=== PATIENT | female | born 1990 | race Hispanic/Latino ===

== ENCOUNTER 2019-02-17 14:11 | Emergency (ER) | payer OTHER, SELFPAY | END 2019-02-17 16:59 | disposition home or self-care (01) | LOC: ERS 14:11 | DX: O99.511 Diseases of the respiratory system complicating pregnancy, first trimester (principal); J10.1 Influenza due to other identified influenza virus with other respiratory manifestations; Z3A.01 Less than 8 weeks gestation of pregnancy | CPT/HCPCS: 87804; 99283 ==

== ENCOUNTER 2019-08-11 09:43 | Day surgery (SDC) | payer MEDICAID, OTHER ==
[2019-08-11 10:07] VITALS: BP 114/58; TEMP 98.5
[2019-08-11 10:09] VITALS: BMI 27.8
[2019-08-11] MEDS ORDERED: hydrALAZINE 20 MG/ML VIAL SLOW IVP PRN (10:21)
--- NOTE | 2019-08-11 10:24 | PDOC.FPROB ---
FMR OB H&P: HPI - History of Present Illness Chief Complaint: seeing spots in vision Indentification: 29 y/o @ 32.4 wks dated by LMP and 1T sono in [place]. History of Present Illness: Presents to L&D after a phone visit with Dr. Llanes at [facility], after stating she was having spots in her vision. Pt has a pmhx of Pre-E in previous first in 2011. Pt states the black spots are worsened by moving her head and they are always present. Denies streaks or flashes across her vision. Pt c/o occasional LEAL in that self resolves without any medications. Pt denies LOF. Reports many FM. Denies vaginal bleeding and states she has slight white vaginal d/c. denies vaginal irritation or itching. Pt has been receiving monthly care in [place]. Brought records to clinic form [place]. Pt states she received two doses of celestone about 1 month ago. She states this was due to possibly requiring a at that time. 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 Pt does not remember the name. - Surgical History Sx History: Cholecystectomy in 2012 polyp removal from [facility] 2016 - Social History Social History: Denies etoh, tobacco or drugs. Late transfer of care from [place] Feels safe at home. - Family History Family History: sister with scoliosis FMR OB H&P: Medications - Current Home Medications: Medication Instructions Recorded Confirmed Type 21/Iron Fu/Folic Acid 1 tablet PO DAILY 11/02/13 08/11/19 History [ Complete Caplet] Allergies/Adverse Reactions: Allergies Allergy/AdvReac Type Severity Reaction Status Date / Time No Known Allergies Allergy Verified 11/03/13 09:17 FMR OB H&P: ROS - Review of Systems General: denies: fever/chills Eyes: reports: vision changes, floaters. denies: eye pain, double vision, scotomas ENT: denies: nasal congestion, sore throat Cardiovascular: reports: palpitation (in the mornings). denies: chest pain, edema Respiratory: denies: cough, congestion, shortness of breath Gastrointestinal: denies: abdominal pain, nausea, vomiting, diarrhea Genitourinary (Female): reports: vaginal discharge. denies: dysuria, vaginal pain, vaginal bleeding, contractions, vaginal pressure Musculoskeletal: denies: pain, swelling Neurologic: denies: numbness, seizures Integumentary: denies: itching, rash Endocrine: denies: polydipsia, polyuria Hematologic/Lymphatic: denies: prolonged or excessive bleeding, enlarged lymph nodes FMR OB H&P: Vital Signs - Maternal Vital signs: Vital Signs - First Documented Temp Pulse Resp BP 98.5 F 66 18 114/58 L 08/11/19 09:50 08/11/19 09:50 08/11/19 09:50 08/11/19 09:50 - Heart Tones Baseline: 145 Variability: moderate Acceleration: present Deceleration: absent [place] contractions every: none on TOCO FMR OB H&P: Physical Exam - Physical Exam General: NAD, awake, alert and oriented HEENT: normocephalic and atraumatic, EOMI, MMM, grossly normal vision, grossly normal hearing Neck: supple, FROM, trachea midline, no JVD Chest: non-tender to palpation Breast: symmetric Heart: RRR, normal S1/S2, no murmurs/rubs/gallops, pulses present, no edema General: CTAB, no respiratory distress, good air movement, no rales/rhonchi, no wheezing, no retractions Abdomen: soft, gravid, non-tender, bowel sound present Musculoskeletal: normal gait and station, pulses present, FROM in all four extremities, no misalignment/asymmetry, no atrophy Neurological: sensation to pain,touch and proprioception grossly normal, DTR +2 , no clonus, no tremor, no focal deficit Skin: no rash, good tugor, capillary refill <2 seconds, no jaundice Lymphatic: no unusual bruising or bleeding, no purpura, no petechia Psychiatric: intact recent and remote memory, good judgement and insight, normal mood and affect FMR OB H&P: A/P - Problem List (1) Status: Acute Qualifiers: Weeks of gestation: 32 weeks Qualified Code(s): Z3A.32 - 32 weeks gestation of (2) History of pre-eclampsia in prior , currently Status: Resolved Code(s): O09.299 - SUPRVSN OF PREG W POOR REPRODCTV OR OBSTET HISTORY, UNSP TRI (3) Vision abnormalities Status: Acute Code(s): H53.9 - UNSPECIFIED VISUAL DISTURBANCE Discussion: Date/Time: 08/11/19 1022 29 y/o , presents to L&D after phone visit with [facility]. Llanes with reported spots in vision. 1. sIUP @ 32.4 wks dated by LMP and 1T sono - FHT's 145 baseline, accels present, no decles, moderate variability. - no ctx on toco 2. Spots in vision, consistent with [place]. - BP wnl - ordered CMP, CBC, Urine Pro/Cr ratio for baseline. - BP monitoring for 4 hours 3. Hx of Pre-E in previous - baseline labs drawn - No elevated BP in L&D monitoring so far. 4. Late transfer of care from [place] - has received monthly care in [place]. - Had celestone X2 approx 1 month ago. Will seek records given to PN for further evaluation. This H&P was discussed with Dr. Frias and Dr. Perez who agree with the above documentation and plan. Addendum - Attending - Attending Attestation Date/Time: 08/11/19 1403 I personally evaluated the patient and discussed the management with Dr. Montes. I agree with the History, Examination, Assessment and Plan documented above with any addition or exceptions noted below. Evaluation did not reveal pre-E or Gest HTN. BPP was 8/8. NST reactive. 4 quadrant AFO was 4.8cm MVP was >2. Will follow up for Outpt BPP in 1 week.
[2019-08-11 11:14] LABS: ALT (SGPT) 12 U/L (8-55); AST (SGOT) 11 U/L (5-34); Albumin 3.4 g/dL (3.5-5.0); Alkaline Phosphatase 120 U/L (40-110); Anion Gap 12 mmol/L (10-20); BUN (Urea Nitrogen) 6 mg/dL (7.0-18.7); Bilirubin, Total 0.3 mg/dL (0.2-1.2); Calc. Creatinine Clearance 184 mL/min (70-130); Calcium 8.6 mg/dL (7.8-10.44); Carbon Dioxide 22 mmol/L (22-29); Chloride 107 mmol/L (98-107); Estimated GFR-MDRD Greater than 90; Globulin 2.9 g/dL (2.4-3.5); Glucose 82 mg/dL (70-105); Potassium 4.1 mmol/L (3.5-5.1); Protein, Total 6.3 g/dL (6.0-8.3); Sodium 137 mmol/L (136-145)
[2019-08-11 11:43] LABS: #Basophils 0.1 thou/uL (0.0-0.2); #Eosinphils 0.3 thou/uL (0.0-0.7); #Monocytes 0.7 thou/uL (0.11-0.59); #Neutrophils 7.3 thou/uL (1.40-6.50); %Basophils 0.5 % (0.0-1.0); %Eosinophils 2.6 % (0.0-10.0); %Lymphocytes 19.5 % (21.0-51.0); %Monocytes 7.1 % (0.0-10.0); %Neutrophils 70.3 % (42.0-75.0); Mean Corpuscular HGB CONC 32.5 g/dL (32.0-36.0); Mean Corpuscular Hemoglobin 28.2 pg (27.0-31.0); Mean Corpuscular Volume 86.7 fL (78.0-98.0); Platelet Count 319 thou/uL (130-400); RBC Distribution Width 12.4 % (11.5-14.5); Red Blood Cell (RBC) Count 4.25 mill/uL (4.20-5.40); White Blood Cell (WBC) Count 10.4 thou/uL (4.8-10.8)
[2019-08-11 11:55] LABS: Creatinine, Urine 95.44 mg/dL (47-110); Protein, Urine Random Quant Less than 10 mg/dL (1-14)
--- NOTE | 2019-08-11 12:03 | PDOC.BPN ---
- Brief Progress Note Urine pr/Cr 0.1 CMP and CBC wnl. BP all within normal limits NST reactive will d/c home with routine care f/u with [facility]
--- NOTE | 2019-08-11 13:08 | ULT ---
ULTRASOUND BIOPHYSICAL PROFILE: DATE: 08/11/2019 HISTORY: 29-year-old female with "variables in monitoring" FINDINGS: breathin tone: 2 movement: 2 Amniotic fluid volume: 2 lie: Cephalic Placenta: Anterior. No placenta previa. KARLENE: 2.5 cm IMPRESSION: 1. Normal biophysical profile score of 8 out of 8, excluding the nonstress test. 2. Possible oligohydramnios.
--- NOTE | 2019-08-11 17:33 | PDOC.BPN ---
- Brief Progress Note BPP / NST reactive had variable with contraction on monitoring. KARLENE 4.8- boarderline, but MVP 3.6 Repeat BPP in 1 week. f/u with [facility] in 2-3 days. BPP in 1 week Pt given return precautions of decreased movements, vag bleeding, discharge, LOF or contractions. PT understands interpreter and translator used for all conversations. Discharged after plan discussed with Dr. Perez, attending physician.
== END 2019-08-11 13:45 | disposition home health service (06) ==
LOC: L&D/OP 09:43
PROVIDERS: ATTEND Family Medicine
DX: O99.89 Other specified diseases and conditions complicating pregnancy, childbirth and the puerperium (principal); H53.8 Other visual disturbances; Z3A.32 32 weeks gestation of pregnancy
CPT/HCPCS: 36415; 76819; 80053; 82570; 84156; 85025

== ENCOUNTER 2019-08-16 20:11 | Emergency (ER) | payer OTHER ==
[2019-08-17 12:25] LABS: SARS-CoV-2 MS2 Positive; SARS-CoV-2 N Gene Negative; SARS-CoV-2 S Gene Negative; SARS-CoV-2 orf1ab Negative
== END 2019-08-16 20:45 | disposition home or self-care (01) ==
LOC: ERS 20:11
DX: Z20.828 Contact with and (suspected) exposure to other viral communicable diseases (principal)
CPT/HCPCS: 87635; 99283; U0003

== ENCOUNTER 2019-09-11 18:00 | Inpatient (IN) | payer OTHER ==
[~2019-09-11 18:00] MED LIST: Bupivacaine/Epinephrine 0.25% 30 ML VIAL ONE
[2019-09-11 22:33] VITALS: BMI 29.6
[2019-09-11] MEDS ORDERED: hydrALAZINE 20 MG/ML VIAL SLOW IVP PRN (23:22)
--- NOTE | 2019-09-11 23:26 | PDOC.FPROB ---
FMR OB H&P: HPI - History of Present Illness Chief Complaint: mIOL History of Present Illness: 29 y/o [id number] at 37.0 weeks by LMP and 6.6 wk US performed in [place] presents for mIOL. She has a hx of oligohydramnios by US at 32 wks with KARLENE 4.8 at that time. Repeat US at 34.6 weeks with KARLENE 5.5, at 36.1 weeks KARLENE 8.19. Reports she is feeling baby moving, denies any contractions, LOF, vaginal bleeding, vaginal discharge, dysuria, hematuria. Denies any issues with blood pressure or blood sugar during this , although has history of pre-eclampsia in 2012. Additional complications of this include presenting late to care from [place], although she did have early US in [place]. FMR OB H&P: Current - Care : 3 Para: 2001 Gestational age: 37.0 Due date: 10/02/19 Dating Criteria: LMP, 6.6 wk sono in [place] Course/Complications: Oligohydramnios first noted at 32.0 weeks with KARLENE of 4.8. At 33.1 weeks, poor bedside sono with KARLENE 3. At 34.6 weeks, KARLENE 5.5. At 36.1 weeks, KARLENE 8.19. - OB Labs Blood type: O RH: positive Antibody Screen: negative HIV: negative RPR: negative HepBsAg: negative Rubella: immune Quad screen: unknown Urine drug screen: not done Gonorrhea: negative Chlamydia: negative GBS: positive FMR OB H&P: History - Past Medical History PMH: none - OB History OB History: oligohydramnios, hx of pre-eclampsia (2011) - Surgical History Sx History: cholecystectomy, nose surgery - Social History Social History: Denies tobacco, etoh, drug use. - Family History Family History: Sister: scoliosis. Denies FamHx heart disease, diabetes. FMR OB H&P: Medications - Current Home Medications: Medication Instructions Recorded Confirmed Type 21/Iron Fu/Folic Acid 1 tablet PO DAILY 11/02/13 09/11/19 History [ Complete Caplet] Allergies/Adverse Reactions: Allergies Allergy/AdvReac Type Severity Reaction Status Date / Time No Known Allergies Allergy Verified 09/11/19 22:35 FMR OB H&P: ROS - Review of Systems General: denies: fever/chills Eyes: denies: vision changes ENT: denies: nasal congestion, rhinorrhea, sore throat Cardiovascular: denies: chest pain, edema Respiratory: denies: cough, congestion, shortness of breath Gastrointestinal: denies: abdominal pain, nausea, vomiting, diarrhea, constipation Genitourinary (Female): denies: dysuria, hematuria, vaginal discharge, vaginal bleeding, contractions Neurologic: denies: headache Integumentary: denies: rash FMR OB H&P: Vital Signs - Maternal Vital signs: BP 120/66, HR 60, RR 18, O2 99% on RA - Heart Tones Baseline: 140 Variability: moderate Acceleration: present Deceleration: absent Category: category 1 FMR OB H&P: Physical Exam - Physical Exam General: NAD, awake, alert and oriented HEENT: normocephalic and atraumatic, EOMI, MMM, grossly normal hearing Heart: RRR, normal S1/S2, no murmurs/rubs/gallops, pulses present, no edema General: CTAB, no respiratory distress, no rales/rhonchi, no wheezing Abdomen: gravid, non-tender, bowel sound present Musculoskeletal: pulses present Skin: no rash Lymphatic: no LAD Psychiatric: normal mood and affect - Pelvic Exam Vulva: no blood SVE: /-2 FMR OB H&P: A/P Disposition: sIUP, r/o mIOL: - complicated by oligohydramnios at 34.6 weeks, late to care -Most recent KARLENE 8.91cm at 36.1 weeks - OB Ltd for KARLENE stat today -- if oligo, will proceed with mIOL today -- if adequate fluid today without signs of labor and monitoring remains category 1, will discharge to home with plans for mIOL at 39.0 wks GBS positive: -Will need PCN at time of induction, whether that is today or at 39 weeks Hx of pre-eclampsia: -No elevated blood pressures during this -Monitor vitals closely -If BP elevated, proceed with pre-eclampsia workup Discussion: Date/Time: 09/11/19 8844 This H&P was discussed with Dr. Santos and Dr. Perez who agree with the above documentation and plan.
[2019-09-12] MEDS ORDERED: Butorphanol Tartrate 1 MG/ML VIAL SLOW IVP PRN (00:54)
[2019-09-12] MEDS ORDERED: Promethazine HCl 25 MG/ML VIAL IM PRN (00:54)
[2019-09-12] MEDS ORDERED: Diphenoxylate HCl/Atropine Tablet PO PRN ×2 (00:54)
[2019-09-12] MEDS ORDERED: Ondansetron PF 4 MG/2 ML Vial IVP PRN (00:54)
[2019-09-12] MEDS ORDERED: NS / Oxytocin 40 units/1000ml 1,000 ML IV PRN ×2 (00:54→17:40)
[2019-09-12] MEDS ORDERED: Carboprost 250 MCG/ML AMP IM PRN (00:54)
[2019-09-12] MEDS ORDERED: Ibuprofen 800 MG TAB PO PRN (00:54)
[2019-09-12] MEDS ORDERED: Methylergonovine 0.2 MG/ML VIAL IM PRN (00:54)
[2019-09-12] MEDS ORDERED: Misoprostol 200 MCG TAB PR PRN (00:54)
[2019-09-12] MEDS ORDERED: Lidocaine 1% (PF) 30 ML VIAL SC PRN ×2 (00:54→17:40)
[2019-09-12] MEDS ORDERED: Penicillin G Potassium 5 MILL.UNITS in Sodium Chloride 0.9% 100 ML IVPB SCH (01:00)
[2019-09-12 01:07] LABS: Hemoglobin 12.1 g/dL (12.0-16.0); Mean Corpuscular HGB CONC 33.8 g/dL (32.0-36.0); Mean Corpuscular Hemoglobin 28.8 pg (27.0-31.0); Mean Corpuscular Volume 85.1 fL (78.0-98.0); Mean Platelet Volume 8.9 fL (7.4-10.4); Platelet Count 282 thou/uL (130-400); RBC Distribution Width 12.3 % (11.5-14.5); Red Blood Cell (RBC) Count 4.19 mill/uL (4.20-5.40); White Blood Cell (WBC) Count 9.4 thou/uL (4.8-10.8)
[2019-09-12] MEDS: Misoprostol 100 MCG TAB VAG SCH ×3 (01:20→10:20)
[2019-09-12 01:36] LABS: HBSAg Index 0.15 S/CO (0-0.99); Hep B Surf Ag Non-Reactive S/CO (NonReactive)
--- NOTE | 2019-09-12 01:41 | PDOC.OBLPN ---
FMR OB Labor PN: Subj - Interval History Chief Complaint: mIOL, oligohydramnios Interval History: Pt resting comfortably, feeling baby move, no painful contractions. FMR OB Labor PN: Obj - Maternal Vital signs: BP: 110/53 HR: 56 FMR OB Labor PN: Exam - Physical Exam General: NAD, awake, alert and oriented HEENT: normocephalic and atraumatic, EOMI General: no respiratory distress - Pelvic Exam SVE: /-2 FMR OB Labor PN: Data - Labs Lab results: Laboratory Results - last 24 hr 09/11/19 09/11/19 22:48 22:48 WBC 9.4 RBC 4.19 L Hgb 12.1 Hct 35.7 L MCV 85.1 MCH 28.8 MCHC 33.8 RDW 12.3 Plt Count 282 MPV 8.9 Blood Type O POSITIVE Antibody Screen NEGATIVE FMR OB Labor PN: A/P Disposition: mIOL 2/2 oligohydramnios -KARLENE 4.2 @ 37.0 weeks -reassuring FHT -will proceed with IOL -SVE /2 @ 0103, [place] 6 -cytotec #1 @ 0128 -recheck cervix due 0530 Discussion: Date/Time: 09/12/19140 This H&P was discussed with Dr. Santos and Dr. Perez who agree with the above documentation and plan.
[2019-09-12 05:13] LABS: Syphilis Antibody Nonreactive (Nonreactive); Syphilis Antibody Index 0.09 S/CO (<1.00 Non-Reactive)
[2019-09-12] MEDS: Penicillin G 2.5 MILL.units 2.5 MILL.UNITS in Premix Bag 1 BAG IVPB SCH ×4 (06:45→20:00)
--- NOTE | 2019-09-12 07:54 | ULT ---
PRELIMINARY REPORT/[facility]/EMERGENCY AFTER HOURS PROCEDURE EXAM: US Obstetrical, Complete >14 weeks. CLINICAL HISTORY: Hx: oligo, need KARLENE TECHNIQUE: Transabdominal imaging of the maternal pelvis and a > 14 week gestation with image documentation. COMPARISON: None provided. FINDINGS: POSITION: position is vertex. HEART RATE: The heart rate is 139 beats per minute. ANATOMIC SURVEY: The visualized anatomy is unremarkable. PLACENTA: The placenta is located anterior right. No sonographic evidence for previa or abruption. AMNIOTIC FLUID: Oligohydramnios with KARLENE measure about a 4.2 cm. CERVIX: Closed. Unremarkable as visualized. IMPRESSION: Single viable intrauterine . There is oligohydramnios ELECTRONICALLY SIGNED BY: Frida Haines MD Sep 12, 2019 12:52:38 AM CDT This report is intended for review by the ordering physician only, in accordance of law. If you recei ve this report in error, please call [facility] at [phone]. FINAL REPORT Final report by Dr. Hercules Emergency after-hours study ULTRASOUND OBSTETRICAL COMPLETE: DATE: 09/12/2019 12:24 AM HISTORY: 29-year-old female with oligohydramnios. "Need KARLENE" FINDINGS: number: rock lie: Vertex Maternal cervix: 4 cm. Closed. Placenta: Anterior and right Amniotic fluid volume: KARLENE = 4cm heart rate: 139 bpm anatomy not evaluated. biometry not performed. No major disagreement with preliminary report by [facility]. IMPRESSION: 1) Live 3rd trimester intrauterine gestation. 2) Vertex lie. 3) Ooligohydramnios. Transcribed Date/Time: 09/12/2019 8:16 AM
--- NOTE | 2019-09-12 09:09 | PDOC.LDPN ---
Labor & Delivery Progress Note - Subjective Subjective: comfortable, no concerns - Objective Vital signs reviewed and normal: yes General: NAD, resting Uterine fundus: non tender SVE: 2.5, 50, -2 FHT: category 1 [place] contractions every: 4 mins Plan: continue plan of care -: sIUP, r/o mIOL: - complicated by oligohydramnios at 34.6 weeks, late to care -Most recent KARLENE 4.2 on 09/11/19 -SVE: 2.5/50/-2, 3/3 cytotec dose placed (25 mg) GBS positive: -2 doses PCN completed Hx of pre-eclampsia: -No elevated blood pressures during this -Monitor vitals closely -If BP elevated, proceed with pre-eclampsia workup Addendum - Attending - Attending Attestation Date/Time: 09/12/19 1116 I personally evaluated the patient and discussed the management with Dr. Geronimo I agree with the History, Examination, Assessment and Plan documented above with any addition or exceptions noted below. 29 yo female at 37.1 wks by LMP/6.6 wk sono admitted for mIOL 2/2 oligo Patient doing well. +FM. Intact. Cephalic on sono. KARLENE 4 cm. Has been tolerating miso well throughout the night. Cat 1 tracing. EFW 7.5 to 8 lbs. - mIOL with SIUP: OB record reviewed. Anatomy reviewed. Has been evaluated by MFM but no significant /maternal/placental findings. Incomplete care. s/p Tdap. 2T/3T labs negative. GBS positive. - oligo: Continue with IOL. Tolerating miso well. Will continue until [place] 6 to 8. - hx of preE 2011: BP WNL. No concerns for recurrence at this time. - GBS carrier: Continue PCN until delivery. Repeat SVE in 4 hours Ok to eat if wants FHT in 1 hour ABrayMD
[2019-09-12] MEDS: Lactated Ringer's 1,000 ML IV SCH ×2 (10:21)
--- NOTE | 2019-09-12 14:33 | PDOC.LDPN ---
Labor & Delivery Progress Note - Subjective Subjective: comfortable, no concerns - Objective Vital signs reviewed and normal: yes General: NAD, resting Uterine fundus: non tender SVE: 3/60/-2 FHT: category 1 [place] contractions every: 2-3 minutes, patient feels them q5 mins Procedures: cytotec 25 mg placed Plan: continue plan of care -: sIUP, r/o mIOL: - complicated by oligohydramnios at 34.6 weeks, late to care -Most recent KARLENE 4.2 on 09/11/19 -SVE: 350/-2, 4th cytotec dose placed (25 mg) GBS positive: -2 doses PCN completed Hx of pre-eclampsia: -No elevated blood pressures during this -Monitor vitals closely, BP wnl to date -If BP elevated, proceed with pre-eclampsia workup Addendum - Attending - Attending Attestation Date/Time: 09/12/19 8305 I personally evaluated the patient and discussed the management with Dr. Geronimo I agree with the History, Examination, Assessment and Plan documented above with any addition or exceptions noted below. Miso #4 now placed. FHT cat 1. Continue to monitor. Repeat exam in 4 hours. Will likely be able to transition to pitocin. Esther
--- NOTE | 2019-09-12 17:10 | PDOC.LDPN ---
Labor & Delivery Progress Note - Subjective Subjective: comfortable, no concerns - Objective Vital signs reviewed and normal: yes General: NAD Uterine fundus: non tender SVE: /-2 FHT: category 1 [place] contractions every: 3 mins -: sIUP, r/o mIOL: - complicated by oligohydramnios at 34.6 weeks, late to care -Most recent KARLENE 4.2 on 09/11/19 -SVE: /-2 @ 1700, /-2, 4th cytotec dose placed (25 mg) -Consider Pitocin augmentation GBS positive: -2 doses PCN completed Hx of pre-eclampsia: -No elevated blood pressures during this -Monitor vitals closely, BP wnl to date -If BP elevated, proceed with pre-eclampsia workup
[2019-09-12] MEDS ORDERED: NS w/ Oxytocin 10 units 500 ML ONE (17:26)
[2019-09-12] MEDS ORDERED: NS w/ Oxytocin 10 units 500 ML IV SCH (17:45)
--- NOTE | 2019-09-12 23:53 | PDOC.LDPN ---
Labor & Delivery Progress Note - Subjective Subjective: comfortable - Objective Vital signs reviewed and normal: yes General: NAD Dilation: 3 Effacement: 50% Station: -2 FHT: category 2 (minimal variability) [place] contractions every: 1-2 minutes AROM: clear fluid IUPC placed: yes Resuscitative measures: maternal IV fluids - Assessment (1) Current Visit: No Status: Acute Qualifiers: Weeks of gestation: 32 weeks Qualified Code(s): Z3A.32 - 32 weeks gestation of (2) History of pre-eclampsia in prior , currently Code(s): O09.299 - SUPRVSN OF PREG W POOR REPRODCTV OR OBSTET HISTORY, UNSP TRI Current Visit: No Status: Resolved Plan: pitocin for augmentation -: sIUP @ 37.1 WGA w/ mIOL for oligohydramnios: - complicated by oligohydramnios at 34.6 weeks, late to care -KARLENE 4.2 on 09/11/19 necessitating admission for mIOL -SVE: 350/-2 @ ~23:45 w/ AROM of clear fluid. IUPC placed - Continue pitocin for labor augmentation GBS positive: -s/p Pen G x4 Hx of pre-eclampsia in prior : -No elevated blood pressures during this -BPs wnls since admission w/ 1 severe range while patient was laying on arm with cuff -If any BP is elevated will proceed with pre-eclampsia workup Dispo: Will continue pitocin for augmentation & titrate to maintain adequate contraction pattern. Will plan to recheck in ~3-4 hours or sooner should patient report increased pressure.
[2019-09-13] MEDS ORDERED: Fentanyl 4 mcg/Bup 0.1% Cadd 100 ML ONE (01:51)
--- NOTE | 2019-09-13 01:58 | PDOC.LDPN ---
Labor & Delivery Progress Note - Subjective Subjective: painful contractions - Objective Abnormal vital signs: BP 149/80 General: breathing through contractions Dilation: 5 Effacement: 75% (~60%) Station: -1 FHT: category 2 (minimal variability) [place] contractions every: 1-2 minutes AROM: clear fluid IUPC placed: yes Resuscitative measures: maternal IV fluids, maternal position change - Assessment (1) Current Visit: Yes Status: Acute Qualifiers: Weeks of gestation: 37 weeks Qualified Code(s): Z3A.37 - 37 weeks gestation of (2) History of pre-eclampsia in prior , currently Code(s): O09.299 - SUPRVSN OF PREG W POOR REPRODCTV OR OBSTET HISTORY, UNSP TRI Current Visit: Yes Status: Chronic Plan: pitocin for augmentation -: sIUP @ 37.1 WGA w/ mIOL for oligohydramnios: - complicated by oligohydramnios at 34.6 weeks, late to care -KARLENE 4.2 on 09/11/19 necessitating admission for mIOL -SVE: /-1 @ ~0145 & IUPC placed -Continue pitocin for labor augmentation, awaiting epidural GBS positive: -s/p Pen G x4 Hx of pre-eclampsia in prior : -No elevated blood pressures during this -Last BP elevated @ 149/80 but having painful contractions. 1 severe range while patient was laying on arm with cuff per nurse -Will proceed with pre-eclampsia workup if elevated BPs persist despite pain control w/ epidural. Patient asymptomatic at this time. Dispo: Will continue pitocin for augmentation & titrate to maintain adequate contraction pattern. Will plan to recheck in ~2-3 hours or sooner should patient report increased pressure.
--- NOTE | 2019-09-13 02:55 | PDOC.OPDEL ---
OB Operative/Delivery Note Delivery Dr/Surgeon: Tom/ Pre-Delivery Diagnosis: medically indicated induction (for oligohydramnios) Weeks gestation: 50 Anesthesia: epidural - Additional Findings/Plan Placenta delivered: spontaneous Repaired Obstetrical Laceration: none Compilations/Other Findings: Delivering Physician: Tom Attending: Procedure: Spontaneous Vaginal Delivery Anesthesia: epidural QBL: 50 ml Pre-op Diagnosis: 1. Term intrauterine in labor 2. Oligohydramnios 3. hx of preeclampsia 4. Late to care Post-op Diagnosis: 1. Term intrauterine , delivered 2.-4. same as above Indications: A 29 y/o female presents to L&D for induction due to oligohydramnios. Delivery Note: This is 29 yo F @ 37.2 wks who delivered a viable F infant at 0243. Following an uneventful antepartum course, a vigorous female was delivered over an intact perineum in the occipitoanterior position. Anterior Shoulder and then remainder of the body delivered. No nuchal cord. The head was held down wiped clean. Cord clamped after delayed cord clamping and cut and cord blood collected. Placenta delivered intact in the [place] with a 3 vessel cord noted. Fundal massage was performed and the fundus was firm. The cervix and vagina were inspected and found to be free of lacerations. Infant went to nursery in good condition for routine care. Apgars were 9/9 at 1 & 5 minutes, respectively. Patient tolerated delivery well and went to after routine recovery/care. Post delivery plan: routine recovery
[2019-09-13] MEDS ORDERED: Methylergonovine 0.2 MG/ML VIAL IM PRN (05:06)
[2019-09-13] MEDS ORDERED: Milk Of Magnesia 30 ML UDCUP PO PRN (05:06)
[2019-09-13] MEDS ORDERED: Misoprostol 200 MCG TAB VAG PRN (05:06)
[2019-09-13] MEDS ORDERED: Benzocaine-Menthol 82.5 ML CAN TOP PRN (05:06)
[2019-09-13] MEDS ORDERED: Lanolin Ointment 7 GM TUBE TOP PRN (05:06)
[2019-09-13] MEDS ORDERED: Bisacodyl 10 MG SUPP PR PRN (05:06)
[2019-09-13] MEDS ORDERED: NS / Oxytocin 40 units/1000ml 1,000 ML IV SCH (05:06)
[2019-09-13] MEDS ORDERED: Ondansetron PF 4 MG/2 ML Vial IVP PRN (05:47)
[2019-09-13] MEDS ORDERED: diphenhydrAMINE 50 MG/ML VIAL IVP PRN (05:47)
[2019-09-13] MEDS ORDERED: Lactated Ringer's 500 ML IV PRN (05:47)
[2019-09-13] MEDS ORDERED: Naloxone HCl 0.4 mg/ml Vial IVP PRN ×2 (05:47)
[2019-09-13] MEDS ORDERED: EPHEDRINE 25 MG/5 ML SYRINGE SLOW IVP PRN (05:47)
[2019-09-13] MEDS ORDERED: Promethazine HCl 25 MG/ML VIAL IM PRN (05:47)
[2019-09-13] MEDS ORDERED: Acetaminophen 325 MG TAB PO PRN (05:47)
[2019-09-13] MEDS ORDERED: Communication Order-Pharmacy FS SCH (06:00)
[2019-09-13] MEDS ORDERED: Fentanyl 4 mcg/Bupivacaine 0.1% Cassette 100 ML EPIDURAL SCH (06:00)
[2019-09-13] MEDS ORDERED: Adacel (T-DAP) 0.5 ML SYRINGE IM ONE (09:00)
[2019-09-13] MEDS: Ibuprofen 800 MG TAB PO SCH ×3 (10:03→21:19)
[2019-09-13] MEDS: Prenatal Vitamin 1 TAB PO SCH (10:03)
[2019-09-13] MEDS: Docusate Calcium (SURFAK) 240 MG CAP PO SCH ×2 (10:03→21:19)
[2019-09-13] MEDS: Ferrous Sulfate 325 MG TAB PO SCH ×2 (11:28→17:13)
[2019-09-13] MEDS: Misoprostol 100 MCG TAB VAG SCH ×2 (11:29→11:30)
[2019-09-13] MEDS: Penicillin G 2.5 MILL.units 2.5 MILL.UNITS in Premix Bag 1 BAG IVPB SCH ×2 (11:31)
[2019-09-13] MEDS: Lactated Ringer's 1,000 ML IV SCH (11:31)
[2019-09-14] MEDS: Ibuprofen 800 MG TAB PO SCH ×2 (05:50→13:28)
[2019-09-14] MEDS: Ferrous Sulfate 325 MG TAB PO SCH ×2 (08:18→14:24)
[2019-09-14] MEDS: Docusate Calcium (SURFAK) 240 MG CAP PO SCH (08:19)
[2019-09-14] MEDS: Prenatal Vitamin 1 TAB PO SCH (08:19)
--- NOTE | 2019-09-14 08:43 | PDOC.PP ---
Post Progress Note Post Day #: 1 Subjective: Pain well controlled with medications. Breast and bottle feeding. Tolerating PO and ambulating. Lochia less than a period. PO intake tolerated: yes Flatus: yes Ambulation: yes Vital Signs (12 hours) Temp Pulse Resp BP 09/13/19 23:45 98.3 F 53 L 16 107/55 L Weight Weight 85.729 kg - Physical Examination General: NAD Cardiovascular: no m/r/g, RRR Respiratory: clear to auscultation bilaterally, non-labored breathing Abdominal: + bowel sounds, appropriately TTP Neurological: no gross focal deficits Psychiatric: A&Ox3, normal affect Result Diagrams: 09/11/19 22:48 Additional Labs: Post Labs Blood Type O POSITIVE 09/11/19 22:48 Hep Bs Antigen Non-Reactive S/CO (NonReactive) 09/11/19 22:48 - Assessment/Plan sIUP, delivered - Meeting PP milestones - Interested in IUD through [facility] at [facility] for contraception. Will send notice to Lita to start application - F/u at [facility] in 2 weeks. GBS positive - Adequately treated
[2019-09-14 08:52] VITALS: BP 105/51; TEMP 97.8
== END 2019-09-14 16:30 | disposition home or self-care (01) | DRG 806 ==
LOC: L&D 21:54 → 3SW 09-13 07:57
PROVIDERS: ADMIT Family Medicine; ATTEND Family Medicine
PROC: 10E0XZZ Delivery of Products of Conception, External Approach (ICD-10-PCS; principal; 2019-09-14)
PROC: 10907ZC Drainage of Amniotic Fluid, Therapeutic from Products of Conception, Via Natural or Artificial Opening (ICD-10-PCS; 2019-09-14)
PROC: 10H07YZ Insertion of Other Device into Products of Conception, Via Natural or Artificial Opening (ICD-10-PCS; 2019-09-14)
PROC: 3E033VJ Introduction of Other Hormone into Peripheral Vein, Percutaneous Approach (ICD-10-PCS; 2019-09-14)
DX: O99.824 Streptococcus B carrier state complicating childbirth (principal); O41.03X0 Oligohydramnios, third trimester, not applicable or unspecified; Z37.0 Single live birth; Z90.49 Acquired absence of other specified parts of digestive tract; Z3A.37 37 weeks gestation of pregnancy
CPT/HCPCS: 76815; 85027; 86780; 86850; 86900; 86901; 87340; J2540; J2590; J3490

== ENCOUNTER 2019-10-06 09:27 | Emergency (ER) | payer OTHER ==
[2019-10-06 12:03] LABS: Bacteria/HPF 1+ HPF (None Seen); Bilirubin Negative (Negative); Blood, Urine Negative (Negative); Clarity Clear (Clear); Glucose, Urine (Dipstick) Normal (Negative); Ketone, Urine Negative (Negative); Leukocyte 250 Leu/uL (Negative); Nitrite Negative (Negative); Protein, Urine (Dipstick) Negative (Neg-Trace); Specific Gravity, Urine 1.018 (1.002-1.036); Squamous Epithelial 0-3 HPF (0-3); Urobilinogen Normal mg/dL (Less than 2); pH, Urine 5.5 (5.0-9.0)
[2019-10-06] MEDS ORDERED: diphenhydrAMINE 50 MG/ML VIAL ONE (14:13)
[2019-10-06] MEDS ORDERED: Metoclopramide HCl 10 MG/2 ML VIAL ONE (14:13)
[2019-10-06] MEDS ORDERED: Magnesium 2 GM/50 ML BAG (IN WATER) ONE (14:13)
[2019-10-06 14:29] LABS: Pregnancy Test - Urine (BHCG) Negative (Negative); Pregu Control Background? CLEAR/WHITE (CLR/WHITE); Pregu Control Bar Appear? YES (CONTROL BAR); Specific Gravity 1.018 (1.002-1.036)
--- NOTE | 2019-10-06 15:06 | CT ---
CT HEAD WITHOUT CONTRAST: Date: 10/06/2019 INDICATION: Headache. 22 days . FINDINGS: Ventricles have normal size and position. No evidence of intracranial edema. No mass, hemorrhage, inf arct, or other acute process. Sinuses and mastoids are aerated with mild mucosal edema in the ethmoid air cells. IMPRESSION: No acute intracranial abnormality. POS: AGW
== END 2019-10-06 16:10 | disposition home or self-care (01) ==
LOC: ERS 09:27
DX: R51 Headache (principal); N39.0 Urinary tract infection, site not specified
CPT/HCPCS: 70450; 81003; 81015; 81025; 87077; 87086; 96365; 96366; 96368; 96375; J1200; J2765; J3475